=== PATIENT | male | born 1960 | race Caucasian/White ===

== ENCOUNTER 2017-06-19 05:52 | Day surgery (SDC) | payer MEDICAID ==
[2017-06-19] MEDS ORDERED: TROP 1%/CYCLOPEN 1%/PHENYL 2% DROPS ONE (06:21)
[2017-06-19] MEDS ORDERED: PROPARACAINE 0.5% OPHTH SOL 15 ML BTTL ONE (06:21)
[2017-06-19] MEDS ORDERED: MIDAZOLAM INJ 2 MG/2 ML VIAL ONE (07:01)
[2017-06-19] MEDS ORDERED: TROP 1%/CYCLOPEN 1%/PHENYL 2% DROPS OPHTH ONE (07:12)
[2017-06-19] MEDS ORDERED: TOBRAMYCIN SULF 0.3 % OPHT SOL 1 DROP LEFT_EYE ONE ×3 (07:12→08:29)
[2017-06-19] MEDS ORDERED: PROPARACAINE 0.5% OPHTH SOL 15 ML BTTL LEFT_EYE ONE ×3 (07:12→08:00)
[2017-06-19] MEDS ORDERED: LIDOCAINE 1% PF 2 ML AMP INJ ONE (08:08)
[2017-06-19] MEDS ORDERED: DEXAMETHASONE 0.1% OPHTH SOL 1 DROP LEFT_EYE ONE ×2 (08:14→08:29)
[2017-06-19] MEDS ORDERED: BRIMONIDINE 0.2% OPHTH DROPS LEFT_EYE ONE ×2 (08:15→08:29)
[2017-06-19 15:17] VITALS: BP 148/83; TEMP 98.8; O2SAT 98
== END 2017-06-19 09:05 | disposition home or self-care (01) ==
LOC: AMB 05:52
PROVIDERS: ATTEND Ophthalmology
DX: H25.12 Age-related nuclear cataract, left eye (principal); I10 Essential (primary) hypertension; I25.10 Atherosclerotic heart disease of native coronary artery without angina pectoris; E11.36 Type 2 diabetes mellitus with diabetic cataract; E66.9 Obesity, unspecified; J44.9 Chronic obstructive pulmonary disease, unspecified; Z88.2 Allergy status to sulfonamides; Z79.4 Long term (current) use of insulin; Z79.899 Other long term (current) drug therapy
CPT/HCPCS: 36416; 66984; 82948; J2250

== ENCOUNTER → 2018-02-09 | Outpatient (CLI) | payer OTHER | LOC: LAB.O 08:56 | DX: Z00.01 Encounter for general adult medical examination with abnormal findings (principal) ==

== ENCOUNTER → 2018-03-29 | Outpatient (CLI) | payer OTHER | LOC: LAB.O 08:22 | PROVIDERS: ATTEND Otolaryngology | DX: R22.1 Localized swelling, mass and lump, neck (principal); R07.0 Pain in throat ==

== ENCOUNTER → 2018-04-27 | Outpatient (CLI) | payer OTHER ==
--- NOTE | 2018-04-27 16:25 | CT ---
EXAM DESCRIPTION: Chest w/Contrast : Computed Tomography. CLINICAL HISTORY: NECK MASS. "Throat cancer." COMPARISON: CT scan of the neck soft tissues with contrast 03/22/2018. TECHNIQUE: Spiral-axial scans at 5 x 5 mm intervals through the lungs and thorax with IV contrast. 2.5 x 5 mm lung algorithm axial reconstructions. Coronal and sagittal 2.0 Mm reconstructions. No adverse reactions. Total Exam DLP: 1322.79 mGy-cm. This exam was performed according to our departmental dose-optimization program which includes automated exposure control, adjustment of the mA and/or kV according to patient size and/or use of iterative reconstruction technique; to reduce radiation dose to as low as reasonably achievable (ALARA). FINDINGS: Atelectasis or minimal scarring in the inferior lingula. No nodules masses or infiltrates. No pleural effusion or pneumothorax. 1.8 cm nonenhancing nodule with decreased enhancement in the right thyroid gland. Atherosclerotic calcifications in the proximal brachiocephalic vessels aortic arch and descending thoracic aorta. Calcifications in some of the coronary arteries. Central line tip near the superior caval atrial junction. Injection port in the upper right breast. No enlarged axillary nodes or soft tissue masses. The included peritoneal space shows no free air or fluid or mass. Normal size density and enhancement of the and included spleen, adrenal glands, and included pancreas liver and stomach. Radiodense stones in the dependent portion of the gallbladder. Spondylosis at multiple levels of the thoracic spine. Disc space narrowing and facet degeneration at several levels. Degenerative changes in the sternoclavicular joints. Arthrosis in the bilateral glenohumeral joints. IMPRESSION: 1. No abnormal nodules masses or infiltrates in the lungs. No pleural effusion or pneumothorax. 2. 1.8 cm nonenhancing nodule in the right lobe of the thyroid gland. This meets the [employer] Best Practice recommendations criteria for ultrasound scan for idiopathic thyroid nodules. Please see below.* 3. Coronary artery calcifications. Radiodense stones in the gallbladder. No ascites. 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 Please see above. Customary position of central venous line. *.Further evaluation by thyroid US recommended for: -Solitary ITN with high risk imaging features (locally invasive nodule or suspicious lymph nodes) -Solitary ITN of any size in pediatric pts. <= 18 years of age -Solitary ITN >= 1 cm in axial plane in pts. between 18 and 35 years of age -Solitary ITN >= 1.5 cm in axial plane in pts >= 35 years of age -Heterogeneous enlarged thyroid gland -ITN avid on FDG-PET or other nuclear medicine (MIBI and octreotide) scans. FNA biopsy is also recommended for PET avid nodules. 2.No f/u imaging is recommended for ITNs not meeting the above criteria. 3.For multiple thyroid nodules, the above recommendations for solitary ITN are to be applied to the largest nodule. 4.No US or f/u recommended for ITNs without high risk features in pts. with limited life expectancy or significant co-morbidities, unless clinically warranted. 5.These recommendations do not apply to pts. w/ increased risk for thyroid cancer or pts. with symptomatic thyroid disease. Recommendations for f/u of Incidental Thyroid Nodules (ITN) found on CT, MR, NM and Extrathyroidal US are based upon the ACR white paper and [employer] 3-tiered system for managing ITNs: J Am Felix Rad[employer]. 2015 Aug;12(2): 143-50 Electronically signed by: Apolinar Barajas MD 04/27/2018 4:23 PM CDT
== END ==
LOC: CT 07:59
DX: R22.1 Localized swelling, mass and lump, neck (principal); E04.1 Nontoxic single thyroid nodule; I25.10 Atherosclerotic heart disease of native coronary artery without angina pectoris; K80.20 Calculus of gallbladder without cholecystitis without obstruction

== ENCOUNTER → 2018-08-08 | Outpatient (CLI) | payer OTHER | LOC: GMAE 15:27 | PROVIDERS: ATTEND Family Medicine | DX: E03.9 Hypothyroidism, unspecified (principal) ==

== ENCOUNTER 2018-11-07 10:23 | Emergency (ER) | payer OTHER ==
[2018-11-07 10:39] VITALS: TEMP 97.8
[2018-11-07] MEDS ORDERED: ONDANSETRON INJ 4 MG/2 ML VIAL IM ONE (11:17)
[2018-11-07] MEDS ORDERED: HYDROmorphone HCL INJ 2 MG/ML VIAL IM ONE (11:17)
--- NOTE | 2018-11-07 11:22 | ED.PDOC ---
History of Present Illness - General Chief Complaint: ENT Problem Stated Complaint: difficulty swallowing,pain in throat,hoarse Time Seen by Provider: 11/07/18 11:16 Source: patient Exam Limitations: no limitations - History of Present Illness Initial Comments: THIS PATIENT COMES TO THE ED BECAUSE OF CHRONIC PAIN. HE HAS CANCER OF THE THROAT AND SEES AN ONCOLOGIST IN [place], [place]. HE IS SUPPOSE TO HAVE A PAIN MANAGEMENT DOCTOR, ALSO IN [facility] BUT HAS YET TO MAKE AN APPOINTMENT. HE HAS BEEN OUT OF HIS HYDROCODONE FOR TWO MONTHS AND NOW IS HERE BECAUSE HE DESIRES PAIN MEDS. HE VOICES THAT HE KEEPS APPOINTMENT WITH HIS ONCOLOGIST IN [facility] AND THAT HE HAS ANOTHER APPOINTMENT IN NOVEMBER. HE ALSO VOICES THAT HE FINISHED RADIATION THERAPY AT THE END OF JUNE. OF NOW ON NO CHEMOTHERAPY. HE IS HERE BECASUE HE DESIRES PAIN MEDS. Timing/Duration: other - FOR SEVERAL MONTHS EENT Location: throat Prearrival Treatment: no prearrival treatment Improving Factors: nothing Worsening Factors: nothing Associated Symptoms: sore throat Allergies/Adverse Reactions: Allergies Sulfa Antibiotics Allergy (Verified 06/19/17 07:29) Home Medications: Ambulatory Orders Acetamin W/Cod #3 Tab [Tylenol w/CODEINE #3] 2 ea PO Q6HRS #20 tab 11/07/18 Atorvastatin Calcium 40 mg PO BEDTIME 11/07/18 Clonazepam 1 mg PO DAILY 11/07/18 Levothyroxine Sodium 150 mcg PO DAILY 11/07/18 Metformin HCl 1,000 mg PO BID 11/07/18 PARoxetine HCL [Paxil] 20 mg PO DAILY 11/07/18 Review of Systems - Review of Systems Constitutional: States: no symptoms reported EENTM: States: throat pain, throat swelling Respiratory: States: no symptoms reported Cardiology: States: no symptoms reported Gastrointestinal/Abdominal: States: no symptoms reported Genitourinary: States: no symptoms reported Musculoskeletal: States: no symptoms reported Skin: States: no symptoms reported Neurological: States: no symptoms reported, emotional problems Hematologic/Lymphatic: States: no symptoms reported Past Medical History (General) - Patient Medical History Hx Stroke: No Hx Congestive Heart Failure: No Hx Diabetes: No Hx MRSA: No Hx Other - free text: CANCER OF THE THROAT - Vaccination History Hx Influenza Vaccination: No Hx Pneumococcal Vaccination: No - Social History Hx Tobacco Use: Yes Family Medical History - Family History Father Family History: Unknown Living Status: Still Living Physical Exam - Physical Exam General Appearance: Alert, Well Developed, Well Nourished Eye Exam: bilateral normal Ear Exam: bilateral ear: auricle normal, canal normal, TM normal Nasal Exam: normal inspection Throat Exam: other - DRY ORAL MUCOSA Neck: non-tender Cardiovascular/Respiratory: normal peripheral pulses, no JVD Abdominal Exam: non-tender, no organomegaly, other - HAS A PEG Neurologic: no motor/sensory deficits, normal mood/affect, oriented x 3 Skin Exam: normal color Departure - Departure Clinical Impression: Throat cancer Time of Disposition: 11:24 Disposition: Discharge to Home or Self Care Condition: Fair Departure Forms: ED Discharge - Pt. Copy, Patient Portal Self Enrollment Instructions: Throat Cancer Referrals: JOSE MANUEL WALTON MD [Primary Care Provider] - 1-2 Weeks Prescriptions: Acetamin W/Cod #3 Tab [Tylenol w/CODEINE #3] 2 ea PO Q6HRS #20 tab Home Medications: Ambulatory Orders Acetamin W/Cod #3 Tab [Tylenol w/CODEINE #3] 2 ea PO Q6HRS #20 tab 11/07/18 Atorvastatin Calcium 40 mg PO BEDTIME 11/07/18 Clonazepam 1 mg PO DAILY 11/07/18 Levothyroxine Sodium 150 mcg PO DAILY 11/07/18 Metformin HCl 1,000 mg PO BID 11/07/18 PARoxetine HCL [Paxil] 20 mg PO DAILY 11/07/18 Additional Instructions: CALL YOUR PAIN MANAGEMENT DOCTOR IN [place] AND MAKE AN APPOINTMET. ALSO RECOMMEND TO KEEP YOUR APPT WITH YOUR CANCER DRNadege
[2018-11-07 12:11] VITALS: BP 117/74; O2SAT 95
== END 2018-11-07 12:11 | disposition home or self-care (01) ==
LOC: ER 10:23
DX: C14.0 Malignant neoplasm of pharynx, unspecified (principal); Z79.899 Other long term (current) drug therapy; Z88.2 Allergy status to sulfonamides; Z87.891 Personal history of nicotine dependence
CPT/HCPCS: J1170; J2405